=== PATIENT | female | born 1935 | race Caucasian/White ===

== ENCOUNTER 2019-05-11 14:35 | Inpatient (IN) | payer OTHER, MEDICARE ==
[~2019-05-11] VITALS: Ht 160 cm; Wt 68.0 kg
[2019-05-11 15:03] VITALS: Ht 160 cm; Wt 68.0 kg
--- NOTE | 2019-05-11 15:12 | NUR ---
PLACED IN BED 2B FOR EVAL.
--- NOTE | 2019-05-11 15:24 | NUR ---
PT BROUGHT IN BY WHEELCHAIR AND ASSISTED TO BED. PT AAOX4 WITH C/O 10/10 PAIN TO LT MID BACK/LT FLANK AND LT ANKLE S/P TRIP AND FALL ONTO SMALL TABLE YESTERDAY. PT STATES PAIN IS 10/10 TO LT BACK. PT NOTED WITH DRY ABRASION WITH SMALL AREA OF SWELLING TO LT MID BACK/LT FLANK. PT ALSO NOTED TO HAVE SLIGHT SWELLING TO LT ANKLE. PT DENIES ANY LOC. NO OTHER COMPLAINTS THIS TIME. FAMILY AT BEDSIDE.
[2019-05-11 16:31] LABS: BASOPHIL % 1.5 % (0-2); PLATELET COUNT 245 x10^3mcL (130-400); RED CELL DISTRIBUTION WIDTH 12.7 % (11.5-14.5)
[2019-05-11 16:59] LABS: CALCIUM 8.8 mg/dL (8.5-10.1); CARBON DIOXIDE 30.1 mmol/L (21-32); CHLORIDE SERUM 106 mmol/L (98-107); CREATININE SERUM 1.4 mg/dL (0.6-1.0); GLUCOSE SERUM 90 mg/dL (74-106); POTASSIUM SERUM 3.9 mmol/L (3.5-5.1); SODIUM SERUM 143 mmol/L (136-145)
--- NOTE | 2019-05-11 17:00 | NUR ---
PATIENT LYING ON GURNEY- VSS, NAD NOTED. WILL CONTINUE TO MONITOR.
[2019-05-11 17:04] LABS: ALKALINE PHOSPHATASE 48 U/L (46-116); ALT/SGPT 16 U/L (14-59); AST/SGOT 19 U/L (15-37); BILIRUBIN TOTAL 0.4 mg/dL (0.20-1.00); TOTAL PROTEIN, SERUM 6.4 g/dL (6.4-8.2)
[2019-05-11 17:05] LABS: ALBUMIN 3.1 g/dL (3.4-5.0)
--- NOTE | 2019-05-11 19:16 | NUR ---
REPORT GIVEN TO KODI MARTINEZ FOR FURTHER CARE OF PATIENT.
[2019-05-11 19:21] LABS: PHOSPHOROUS 4.2 mg/dL (2.5-4.9)
[2019-05-11 19:25] LABS: CHOLESTEROL/HDL RATIO 5.2
[2019-05-11] MEDS ORDERED: XANAX0.25 MG PO (19:28)
[2019-05-11] MEDS ORDERED: PREMARIN0.3 MG PO (19:28)
[2019-05-11] MEDS ORDERED: APAP/OXYCODONE1 TA4 PO (19:29)
[2019-05-11] MEDS ORDERED: COZAAR100 MG PO (19:30)
[2019-05-11] MEDS ORDERED: AMLODIPINE BESYL5 M2 PO (19:31)
[2019-05-11] MEDS ORDERED: MYRBETRIQ25 MG PO (19:31)
[2019-05-11 19:34] LABS: FREE T4 1.19 ng/dL (0.76-1.46); FREE THYROXINE INDEX 2.9 ug/dL (1.4-4.5); T4(THYROXINE) 8.4 ug/dL (4.7-13.3)
--- NOTE | 2019-05-11 20:30 | NUR ---
RECEIVED PT FROM ER, PT ADMIT FOR SYNCOPE, PT IS A/O X4, VERBAL RESPONSIVE, LUNG SOUND CLEAR BILATERAL, NO COUGH, NO SOB, PT IS ON TELE 4,SR, PAC, DENY ANY CHEST PAIN OR DISCOMFORT, BOWEL SOUND PRESENT ALL 4 QUADRANTS, NO DISTENTION, NO TENDER. PEDAL PULSE PRESENT BOTH FEET, NO EDEMA, THERE IS ECCHYMOSIS AT LEFT SHOULDER AND RED/ABRASION AT LEFT BACK, IV AT RIGHT AC, NO LEAKING, NO INFITLRATION. ALL ADLS ASSIST, ALL NEED MET, CALL LIGHT IN REACH, WILL CONTINUE TO MONITOR.
[2019-05-11 20:57] VITALS: BP 127/64
[2019-05-11] MEDS ORDERED: MIRALAX17 GM/Dose PO (21:00)
[2019-05-11] MEDS ORDERED: EPZICOM1 TAB (21:00)
--- NOTE | 2019-05-11 21:08 | NUR ---
RECEIVED PT FROM ER, PT ADMIT FOR SYNCOPE, PT IS A/O X4, VERBAL RESPONSIVE, LUNG SOUND CLEAR BILATERAL, NO COUGH, NO SOB, PT IS ON TELE 4, A.FIB, DENY ANY CHEST PAIN OR DISCOMFORT, BOWEL SOUND PRESENT ALL 4 QUADRANTS, NO DISTENTION, NO TENDER. PEDAL PULSE PRESENT BOTH FEET, NO EDEMA, THERE IS ECCHYMOSIS AT LEFT SHOULDER AND RED/ABRASION AT LEFT BACK, IV AT RIGHT AC, NO LEAKING, NO INFITLRATION. ALL ADLS ASSIST, ALL NEED MET, CALL LIGHT IN REACH, WILL CONTINUE TO MONITOR.
[2019-05-11 21:33] LABS: T3 TOTAL 0.92 ng/mL
--- NOTE | 2019-05-11 21:40 | NUR ---
PT MADE AWARE WE DO NOT CARRY MIRABEGRON AND ESTROGEN CONJUGATED (PO) AND REQUIRE PT TO BRING OWN MEDICATIONS IF SHE WOULD LIKE THESE MEDICATIONS DURING THIS HOSPITALIZATION. HOME MEDS NOT AT BEDSIDE. PT STATES SHE CAN "GO A FEW DAYS WITHOUT THE ESTROGEN" SINCE SHE TAKES IT FOR MIGRAINES BUT NEEDS THE MED FOR OA BLADDER. OFFERED [facility] FOR TONIGHT AND PT AGREED. PT WILL ASK DAUGHTER TO BRING MIRABEGRON IN TOMORROW. SPOKE TO DR. LINN. MADE AWARE PT STILL NEEDS TO TAKE HER MEDICATIONS FOR TONIGHT INCLUDING PERCOCET, XANAX, AND MIRABEGRON (REQUESTED [facility] SUCH DITROPAN). STATED WILL ORDER MEDS.
--- NOTE | 2019-05-11 22:30 | NUR ---
DR. LINN MADE AWARE OF EKG STRIP SHOWING A FIB BUT COULD POSSIBLY BE NSR WITH PAC'S. CURRENT TELE MONITORING SHOWING NSR WITH PAC'S. NO CHANGES IN ORDERS AT THIS TIME. STATED INVESTIGATIVE AGENT ON BOARD.
[2019-05-11 23:37] LABS: UA SPECIFIC GRAVITY <=1.005 (1.005-1.035); microscopic required? YES; urine erythrocyte TRACE (NEGATIVE)
[2019-05-11 23:38] LABS: AMPHETAMINE QUAL UR NONE DETECTED (See below)
--- NOTE | 2019-05-12 01:30 | NUR ---
PT RESTING IN BED WITH EYES CLOSED. QUIETLY SNORING. NO SIGNS OF DISTRESS OR PAIN NOTED. BREATHING EVEN/UNLABORED ON RA. CALL LIGHT WITHIN REACH, BED AT LOWEST POSITION. WILL CONTINUE TO MONITOR.
--- NOTE | 2019-05-12 04:15 | NUR ---
PT C/O 05/23 BACK PAIN. NORCO GIVEN PER ORDER. WILL MONITOR FOR RELIEF.
[2019-05-12 05:14] VITALS: BP 135/57
--- NOTE | 2019-05-12 05:32 | NUR ---
PT RESTING IN BED. REPORTS RELIEF S/P NORCO. CURRENTLY HAS 4/10 BACK PAIN BUT TOLERABLE. BREATHING EVEN/UNLABORED ON RA. PT DENIES ANY DIZZINESS. CALL LIGHT WITHIN REACH, BED AT LOWEST POSITION. WILL ENDORSE TO DAY NURSE.
[2019-05-12 06:59] LABS: BASOPHIL % 1.6 % (0-2); PLATELET COUNT 243 x10^3mcL (130-400); RED CELL DISTRIBUTION WIDTH 12.9 % (11.5-14.5)
--- NOTE | 2019-05-12 07:00 | NUR ---
RECIEVED PT IN BED RESTING, /O X4 WITH NO C/O KHAN OR DIZZINESS. TELE#4 CONNECTED TO PT, DENIES CP OR PRESSURE. NO SOB NOTED. NS 70ML/HR RUNNING IN RAC, INTACT AND PATENT WITH NO REDNESS OR INFLAMMATION. SAFETY PRECAUTIONS IN PLACE, CALL LIGHT WITHIN REACH, WILL MONITOR.
[2019-05-12 07:14] LABS: CALCIUM 7.9 mg/dL (8.5-10.1); CARBON DIOXIDE 27.3 mmol/L (21-32); CHLORIDE SERUM 106 mmol/L (98-107); CREATININE SERUM 1.3 mg/dL (0.6-1.0); GLUCOSE SERUM 138 mg/dL (74-106); MAGNESIUM 1.6 mg/dL (1.8-2.4); PHOSPHOROUS 3.6 mg/dL (2.5-4.9); POTASSIUM SERUM 3.8 mmol/L (3.5-5.1); SODIUM SERUM 141 mmol/L (136-145)
--- NOTE | 2019-05-12 10:30 | NUR ---
PT STABLE RESTIN IN BED WITH NO C/O PAIN OR DISTRESS. SAFETY PRECAUTIONS IN PLACE, CALL LIGHT WITHIN REACH, WILL MONITOR.
--- NOTE | 2019-05-12 12:44 | NUR ---
ECHOCARDIOGRAM PENDING-HAVING LUNCH
[2019-05-12 13:02] VITALS: BP 131/68
[2019-05-12 16:58] VITALS: BP 128/59
--- NOTE | 2019-05-12 18:29 | NUR ---
PT STABLE AT THIS TIME WITH NO C/O PAIN, DISTRESS, OR SOB. ALL CARES TOLERATED WELL. DAUGHTER AT BEDSIDE. A/O X4 NO KHAN OR DIZZINESS NOTED. TELE#4 CONNECTED TO PT, DENIES CP OR PRESSURE. NS RUNNING AT 70ML/HR IN RAC, INTACT AND PATENT WITH NO REDNESS OR INFLAMMATION. SAFETY PRECAUTIONS IN PLACE, CALL LIGHT WITHIN REACH, WILL ENDORSE TO ONCOMING NURSE.
--- NOTE | 2019-05-12 19:00 | NUR ---
REC'D PT FROM DAY NURSE. PT RESTING IN BED. AAOX4, SPEECH CLEAR, FOLLOWS COMMANDS. TELE 4. DENIES CP, DIZZINESS, OR PALPITATIONS. NO EDEMA NOTED. DENIES RESP DISTRESS OR SOB. BREATHING EVEN/UNLABORED ON RA. ABD SOFT/ROUND. DENIES ABD PAIN, TENDERNESS, OR N/V. VOIDING FREELY. MILD GEN WEAKNESS. KYPHOSIS. AMB WITH ASSIST. L UPPER BACK ABRASION/ECCHYMOSIS MANAGER SOCIAL RESPONSIBILITY. L SHOULDER YELLOW ECCHYMSOSIS. IV TO RAC PATENT AND INFUSING, SITE WNL. CALL LIGHT WITHIN REACH, BED AT LOWEST POSITION, BED ALARM ON. WILL CONTINUE TO MONITOR.
[2019-05-12 20:30] VITALS: BP 150/70
--- NOTE | 2019-05-13 00:10 | NUR ---
PT RESTING IN BED WITH EYES CLOSED. NO SIGNS OF DISTRESS NOTED. BREATHING EVEN/UNLABORED ON RA. CALL LIGHT WITHIN REACH, BED AT LOWEST POSITION. WILL CONTINUE TO MONITOR.
[2019-05-13 05:30] VITALS: BP 150/74
--- NOTE | 2019-05-13 06:02 | NUR ---
PT AWAKE AND RESTING IN BED. C/O CHRONIC BACK PAIN 12/21. NORCO GIVEN PER ORDER. PT DENIES ANY DIZZINESS. NO SIGNIFICANT CHANGES DURING SHIFT. PENDING CARDIOLOGY CONSULT. CALL LIGHT WITHIN REACH, BED AT LOWEST POSITION. WILL ENDORSE TO DAY NURSE.
[2019-05-13 06:27] LABS: CALCIUM 8.2 mg/dL (8.5-10.1); CARBON DIOXIDE 26.8 mmol/L (21-32); CHLORIDE SERUM 109 mmol/L (98-107); CREATININE SERUM 1.1 mg/dL (0.6-1.0); GLUCOSE SERUM 102 mg/dL (74-106); PHOSPHOROUS 3.2 mg/dL (2.5-4.9); SODIUM SERUM 145 mmol/L (136-145)
[2019-05-13 06:28] LABS: BASOPHIL % 0.9 % (0-2); PLATELET COUNT 269 x10^3mcL (130-400); RED CELL DISTRIBUTION WIDTH 12.9 % (11.5-14.5)
--- NOTE | 2019-05-13 08:45 | NUR ---
AM SCHEDULEDS PILLS GIVEN NO [place] ASPIRATION NOTED.
[2019-05-13 08:48] VITALS: BP 169/87
--- NOTE | 2019-05-13 09:00 | NUR ---
SEEN WALKING ON THE HALLWAY ASSISTED BY PHYSICAL THERAPYSTS. NO ANY DISTRESS NOTED.
[2019-05-13 11:51] VITALS: BP 139/63
--- NOTE | 2019-05-13 14:50 | NUR ---
SEEN BY DOCTOR CORONEL AT BEDSIDE. PATIENT AND HER DAUGHTER AT BEDSIDE MADE AWARE OF CURRENT CONDITION. PER DOCTOR CORONEL, PATIENT IS OK TO BE DISCHARGED.
--- NOTE | 2019-05-13 16:54 | NUR ---
DISCHARGE INSTRUCTION EXPLAINED AND GIVEN TO PATIENT AND HER DAUGHTER, VERBALIZED UNDERSTANDING. S/L TO RAC REMOVED WTIH CATHETER INTACT, NO ERYTHEMA OR SWELLING TO SITE, DRSG APPLIED. TELEMETRY RETURNED TO DC. ALL PERSONAL BELONGING CHECKED AND KEPT WITH PATIENT. BROUGHT VIA WC ACCOMPANIED BY PAT OCAMPO AND PATIENT'S DAUGHTER. CONDITION STABLE UPON DISCHARGE HOME.
== END 2019-05-13 16:54 | disposition home or self-care (01) | DRG 73 ==
LOC: ED 14:35 → DU 18:37
PROVIDERS: Student in an Organized Health Care Education/Training Program; ADMIT General Practice
DX: G90.9 Disorder of the autonomic nervous system, unspecified (principal); N17.0 Acute kidney failure with tubular necrosis; R55 Syncope and collapse; S20.222A Contusion of left back wall of thorax, initial encounter; I12.9 Hypertensive chronic kidney disease with stage 1 through stage 4 chronic kidney disease, or unspecified chronic kidney disease; N18.9 Chronic kidney disease, unspecified; N32.81 Overactive bladder; M19.012 Primary osteoarthritis, left shoulder; Z79.891 Long term (current) use of opiate analgesic; Z68.26 Body mass index [BMI] 26.0-26.9, adult; W18.39XA Other fall on same level, initial encounter; Y92.000 Kitchen of unspecified non-institutional (private) residence as the place of occurrence of the external cause
CPT/HCPCS: 83880; 84439; 97116-GP; G0378; J7030; Q0092